=== PATIENT | female | born 1990 | race Caucasian/White ===

== ENCOUNTER 2019-08-13 | Emergency (ER) | payer MEDICAID ==
[~2019-08-13] VITALS: Ht 152.4 cm; Wt 77.1 kg
[2019-08-13 00:30] VITALS: Ht 152.4 cm; Wt 77.1 kg
[2019-08-13 03:17] VITALS: BP 111/75
== END 2019-08-13 03:17 | disposition home or self-care (01) ==
LOC: ED
DX: J11.1 Influenza due to unidentified influenza virus with other respiratory manifestations (principal)
CPT/HCPCS: 87804